=== PATIENT | female | born 1960 | race Caucasian/White ===

== ENCOUNTER 2018-11-22 21:38 | Emergency (ER) | payer OTHER ==
--- NOTE | 2018-11-22 22:20 | EDPHY ---
H & P Stated Complaint: CHEST PAIN AND LEFT ARM NUMBNESS 3 HRS Time Seen by Provider: 11/22/18 21:58 HPI/ROS: Chief Complaint: Chest pain, arm tingling HPI: 58-year-old woman with no significant medical history is presenting with intermittent chest pain for the last 3 days with the onset of some tingling sensation or left arm began about 7:00 a.m. Tonight. Patient states symptoms began when she was driving this evening. Has had having intermittent pain in her left upper chest. Pain is been constant since 5:00 a.m. This evening. No shortness of breath. No leg pain or swelling. No recent travel. No numbness or weakness but does have the sensation that his arm is feeling "asleep". Does not have a history of similar episodes past. No neck pain. No recent falls or injuries. She works as an insurance counselor. No family history of coronary artery disease at a young age. Father did have an FL in his 60s but was a heavy smoker. Patient does not smoke. ROS: 10 systems were reviewed and were negative except those elements noted in the HPI. PMH: Denies Social History: No smoking, no alcohol, no recreational drug use Family History: non-contributory Physical Exam: Gen: Awake, Alert, No Distress HEENT: Nose: no rhinorrhea Eyes: PERRLA, EOMI Mouth: Moist mucosa Neck: Supple, no JVD Chest: nontender, lungs clear to auscultation Heart: S1, S2 normal, no murmur Abd: Soft, non-tender, no guarding Back: no CVA tenderness, no midline tenderness Ext: no edema, non-tender Skin: no rash Neuro: CN II-XII intact, Sensation grossly intact, Strength 5/5 in bilateral upper and lower extremities - Personal History Current Tetanus/Diphtheria Vaccine: Unsure Current Tetanus Diphtheria and Acellular Pertussis (TDAP): Unsure - Medical/Surgical History Hx Asthma: No Hx Chronic Respiratory Disease: No Hx Diabetes: No Hx Cardiac Disease: No Hx Renal Disease: No Hx Cirrhosis: No Hx Alcoholism: No Hx HIV/AIDS: No Hx Splenectomy or Spleen Trauma: No Other PMH: SHOULDER SURGERY - Social History Smoking Status: Never smoked Constitutional: Initial Vital Signs Temperature (C) 36.6 C 11/22/18 21:39 Heart Rate 62 11/22/18 21:39 Respiratory Rate 18 11/22/18 21:39 Blood Pressure 163/92 H 11/22/18 21:39 O2 Sat (%) 96 11/22/18 21:39 O2 Delivery Mode Room Air Allergies/Adverse Reactions: clindamycin Allergy (Verified 11/22/18 21:42) Home Medications: Medication Instructions Recorded NK [No Known Home Meds] 11/22/18 Medical Decision Making - Diagnostics EKG Interpretation: ECG time 9:47 p.m., sinus rhythm with a rate of 55, normal axis, normal intervals, patient does have an abnormal R-wave progression with T-wave inversions in V2 and V3. No ST segment changes. Imaging Results: Imaging Impressions Chest X-Ray 11/22/18 22:15 Impression: Negative for acute cardiopulmonary abnormality with findings as detailed above. ED Course/Re-evaluation: 58-year-old woman presenting with paresthesias in her left arm with some intermittent chest pain in her left chest. No acute ischemic changes on her ECG. She has a completely normal neurologic exam including normal strength and sensation in all dermatomes of the left arm. She has no neck pain. No trauma. Symptoms consistent possible pinched nerve. Chest x-ray is negative. No evidence of impingement. No risk factors for coronary disease or thromboembolic disease. She has been reassured. Will discharge with referral to primary care, return for any concerns. - Data Points Laboratory Results: Laboratory Results 11/22/18 21:50 11/22/18 21:50 11/22/18 11/22/18 11/22/18 21:54 21:50 21:50 WBC 7.61 10^3/uL 10^3/uL (3.80-9.50) RBC 4.63 10^6/uL 10^6/uL (4.18-5.33) Hgb 14.3 g/dL g/dL (12.6-16.3) Hct 42.5 % % (38.0-47.0) MCV 91.8 fL fL (81.5-99.8) MCH 30.9 pg pg (27.9-34.1) MCHC 33.6 g/dL g/dL (32.4-36.7) RDW 12.1 % % (11.5-15.2) Plt Count 327 10^3/uL 10^3/uL (150-400) MPV 9.6 fL fL (8.7-11.7) Neut % (Auto) 73.2 % % (39.3-74.2) Lymph % (Auto) 19.3 % % (15.0-45.0) [place] % (Auto) 5.8 % % (4.5-13.0) Eos % (Auto) 1.1 % % (0.6-7.6) Baso % (Auto) 0.5 % % (0.3-1.7) Nucleat RBC Rel Count 0.0 % % (0.0-0.2) Absolute Neuts (auto) 5.57 10^3/uL 10^3/uL (1.70-6.50) Absolute Lymphs (auto) 1.47 10^3/uL 10^3/uL (1.00-3.00) Absolute Monos (auto) 0.44 10^3/uL 10^3/uL (0.30-0.80) Absolute Eos (auto) 0.08 10^3/uL 10^3/uL (0.03-0.40) Absolute Basos (auto) 0.04 10^3/uL 10^3/uL (0.02-0.10) Absolute Nucleated RBC 0.00 10^3/uL 10^3/uL (0-0.01) Immature Gran % 0.1 % % (0.0-1.1) Immature Gran # 0.01 10^3/uL 10^3/uL (0.00-0.10) Sodium 136 mEq/L mEq/L (135-145) Potassium 3.7 mEq/L mEq/L (3.5-5.2) Chloride 100 mEq/L mEq/L (97-110) Carbon Dioxide 24 mEq/l mEq/l (22-31) Anion Gap 12 mEq/L mEq/L (6-14) BUN 6 mg/dL L mg/dL (7-23) Creatinine 0.7 mg/dL mg/dL (0.6-1.0) Estimated GFR > 60 Glucose 108 mg/dL H mg/dL (70-100) Calcium 9.8 mg/dL mg/dL (8.5-10.4) POC Troponin I 0.00 ng/mL ng/mL (0.00-0.08) Point of Care Test Results: Chemistry 11/22/18 21:54 POC Troponin I 0.00 ng/mL ng/mL (0.00-0.08) Departure - Departure Disposition: Home, Routine, Self-Care Clinical Impression: Paresthesia Condition: Good Instructions: Paresthesia (ED) Additional Instructions: Follow up with primary care physician in 2-3 days for further evaluation. Return to the emergency department for chest pain, shortness of breath, numbness , weakness, fainting, or any other concerns. Referrals: Taylor Ramos MD [Primary Care Provider] - As per Instructions Riaz Hunter MD [Medical Doctor] - As per Instructions
--- NOTE | 2018-11-22 22:21 | CPEKG ---
Test Reason : OPEN Blood Pressure : / mmHG Vent. Rate : 055 BPM Atrial Rate : 056 BPM P-R Int : 174 ms QRS Dur : 091 ms QT Int : 444 ms P-R-T Axes : 075 029 033 degrees QTc Int : 425 ms Sinus rhythm Abnormal R-wave progression, early transition Confirmed by Gary Ruth ([id number] on 11/22/2018 10:20:54 PM Referred By: PHYSICIAN ED Confirmed By:Gary Ruth
[2018-11-22 22:25] LABS: PLATELET COUNT 327 10^3/uL (150-400)
[2018-11-22 23:03] VITALS: BP 114/82
== END 2018-11-22 23:39 | disposition home or self-care (01) ==
DX: R20.2 Paresthesia of skin (principal); R07.89 Other chest pain
CPT/HCPCS: 84484-ER

== ENCOUNTER → 2018-12-30 | Outpatient (CLI) | payer OTHER | LOC: FIMAGING 15:27 ==